=== PATIENT | female | born 1995 | race Two or more races ===

== ENCOUNTER 2020-08-27 15:43 | Emergency (ER) | payer OTHER ==
[~2020-08-27] VITALS: Ht 160 cm; Wt 64.9 kg
== END 2020-08-27 19:31 | disposition home or self-care (01) ==
LOC: ER 15:43
DX: O20.8 Other hemorrhage in early pregnancy (principal); Z3A.12 12 weeks gestation of pregnancy

== ENCOUNTER 2021-03-02 08:45 | Inpatient (IN) | payer OTHER ==
[~2021-03-02] VITALS: Ht 162.6 cm; Wt 2.7 kg
[2021-03-09] MEDS ORDERED: PRENATAL CAPLE1 EAC1 PO (12:03)
== END 2021-03-12 14:33 | disposition home or self-care (01) | DRG 785 ==
LOC: SURH 03-09 07:00 → O/R 03-09 13:52 → OB/GYN 03-09 13:52
PROVIDERS: ADMIT Obstetrics & Gynecology; ATTEND Obstetrics & Gynecology
PROC: 0UB70ZZ Excision of Bilateral Fallopian Tubes, Open Approach (ICD-10-PCS; 2021-03-09)
PROC: 4A1HXFZ Monitoring of Products of Conception, Cardiac Rhythm, External Approach (ICD-10-PCS; 2021-03-09)
PROC: 10D00Z1 Extraction of Products of Conception, Low, Open Approach (ICD-10-PCS; principal; 2021-03-09 07:00)
DX: O34.211 Maternal care for low transverse scar from previous cesarean delivery (principal); Z30.2 Encounter for sterilization; Z37.0 Single live birth; Z3A.39 39 weeks gestation of pregnancy